=== PATIENT | female | born 1935 | race Caucasian/White ===

== ENCOUNTER 2024-01-16 07:55 | Observation (INO) ==
[2024-01-16 08:26] LABS: ABS Basophils 0.1 10^3/uL (0.0-0.1); ABS Eosinophils 0.1 10^3/uL (0.0-0.5); ABS Lymphocytes 2.1 10^3/uL (1.0-4.8); ABS Monocytes 0.6 10^3/uL (0.0-0.9); ABS Neutrophils 3.6 10^3/uL (1.5-7.6); Eosinophil % 2.3 %; Hematocrit 40.5 % (35-45); Lymphocyte % 32.5 %; Mean Corpuscular Hemoglobin 31.3 pg (27-33); Mean Corpuscular Hgb Conc 34.5 g/dL (31-36); Mean Corpuscular Volume 90.7 fL (80-97); Mean Platelet Volume 7.1 fL (7.5-11.2); Platelet Count 369 10^3/uL (150-450); Red Blood Count 4.46 10^6/uL (3.63-4.92); Red Cell Distribution Width 13.1 % (12-17); White Blood Count 6.5 10^3/uL (3.8-11.8)
[2024-01-16 08:41] LABS: INR 1.05 (0.85-1.14)
[2024-01-16 09:24] LABS: Albumin 3.8 g/dL (3.2-5.2); Albumin/Globulin Ratio 1.4 (1-3); CRP High Sensitivity 23.74 mg/L (<2.00); Calcium 9.2 mg/dL (8.6-10.3); Creatinine, Serum 0.67 mg/dL (0.51-0.95); Globulin 2.8 g/dL (2-4); Total Bilirubin 0.4 mg/dL (0.2-1.0); Total Protein 6.6 g/dL (6.4-8.9)
[2024-01-16 10:07] LABS: High Sensitivity Troponin 1 Hr 39 pg/mL (<15)
[2024-01-16] MEDS: Iohexol 350 (CONTRAST) 500 ML MDV IV ONE (11:22)
[2024-01-16] MEDS ORDERED: Ondansetron 4 mg VIAL 2 MG/ML 2 ml VIAL IV PRN (15:43)
[2024-01-16] MEDS: Enoxaparin 40 MG/0.4 ML SYR SUBCUT ONE (18:45)
[2024-01-16] MEDS: Lidocaine PATCH 5% PATCH TRANSDERM SCH (18:46)
[2024-01-17 16:19] VITALS: BP 146/58
[2024-01-17 17:22] LABS: Body Fluid Total Nucleated 563 /mcL
[2024-01-17 17:24] LABS: Body Fluid Appearance Clear; Body Fluid Source Pleural Fluid
[2024-01-17 17:25] LABS: Body Fluid Color Yellow
[2024-01-17 19:03] LABS: Body Fluid Mono 20 %; Body Fluid Total Cells Counted 200
[2024-01-20 11:12] LABS: Fluid Type, Protein, Total PLEURAL (RIGHT); Glucose, BF 121 mg/dL; Total Protein, BF 3.9 g/dL
[2024-01-20 12:52] LABS: Albumin, BF 2.3 g/dL; Fluid Type, Albumin PLEURAL
[2024-01-20 14:04] LABS: Lactate Dehydrogenase, BF 415 U/L
== END 2024-01-17 16:45 | disposition home or self-care (01) ==
LOC: ED 07:55 → EDHOLD 07:55 → MED 17:23
PROVIDERS: ADMIT Student in an Organized Health Care Education/Training Program; ATTEND Student in an Organized Health Care Education/Training Program